=== PATIENT | male | born 1960 | race Caucasian/White ===

== ENCOUNTER 2024-09-08 18:41 | Emergency (ER) | payer OTHER ==
[2024-09-08 18:45] VITALS: PULSE 86; RESP 18
[2024-09-08] MEDS ORDERED: SODIUM CHLORIDE 0.9% 100 ML ONE (19:32)
[2024-09-08] MEDS ORDERED: IOPAMIDOL 370 MG/ML 100 ML INFUS..BTL INJ ONE (19:33)
[2024-09-08 20:38] VITALS: BP 146/84; PULSE 85; RESP 18; TEMP 97.1; O2SAT 98
== END 2024-09-08 20:38 | disposition home or self-care (01) ==
LOC: FSED 18:57
DX: R20.0 Anesthesia of skin (principal); M54.12 Radiculopathy, cervical region; G62.9 Polyneuropathy, unspecified; I10 Essential (primary) hypertension; E78.00 Pure hypercholesterolemia, unspecified; F41.9 Anxiety disorder, unspecified; R94.31 Abnormal electrocardiogram [ECG] [EKG]; Z95.4 Presence of other heart-valve replacement; F17.210 Nicotine dependence, cigarettes, uncomplicated
CPT/HCPCS: 70496; 70498; 71046; 80053; 84484; 85025; 93005; 99282; J7050; Q9967

== ENCOUNTER 2024-10-08 10:48 | Emergency (ER) | payer OTHER ==
[~2024-10-08] VITALS: Ht 172.7 cm; Wt 90.7 kg
[2024-10-08 11:00] VITALS: PULSE 84; RESP 20; TEMP 98.5
[2024-10-08 12:37] VITALS: BP 134/78; PULSE 80; RESP 18; TEMP 97.8; O2SAT 95
== END 2024-10-08 12:17 | disposition home or self-care (01) ==
LOC: FSED 11:04
DX: R09.89 Other specified symptoms and signs involving the circulatory and respiratory systems (principal); U07.1 COVID-19; I10 Essential (primary) hypertension; F41.9 Anxiety disorder, unspecified; Z95.4 Presence of other heart-valve replacement
CPT/HCPCS: 99282